=== PATIENT | female | born 2000 | race Two or more races ===

== ENCOUNTER 2022-10-23 04:25 | Emergency (ER) | payer SELFPAY ==
[~2022-10-23] VITALS: Ht 157.5 cm; Wt 82.0 kg
[2022-10-23 04:26] VITALS: BP 111/73
[2022-10-23] MEDS ORDERED: IBUPROFEN 600 MG TABLET PO ONE (05:15)
[2022-10-23] MEDS ORDERED: BETAMETHASONE DIP 0.05% 15 GM CREAM TP ONE (05:15)
== END 2022-10-23 05:20 | disposition home or self-care (01) ==
LOC: EMS 04:26
DX: L50.9 Urticaria, unspecified (principal); M54.10 Radiculopathy, site unspecified
CPT/HCPCS: 99283